=== PATIENT | female | born 1965 | race African-American/Black ===

== ENCOUNTER 2019-05-02 21:10 | Emergency (ER) | payer OTHER ==
[~2019-05-02] VITALS: Ht 170.2 cm; Wt 80.0 kg
[2019-05-02] MEDS ORDERED: LEVETIRACETAM 500MG PREMIX 100 ML IV ONE (21:45)
[2019-05-02 23:14] LABS: BASOPHILS % 0.7 % (0.0-2.0); EOSINOPHILS % 1.2 % (0.0-5.0); HEMATOCRIT. 29.5 % (36.0-48.0); HEMOGLOBIN. 9.6 g/dL (12.0-16.0); LYMPHOCYTES % 25.9 % (20.0-50.0); MEAN CORPUSCULAR HEMOGLOBIN 31.1 pg (28.0-32.0); MEAN CORPUSCULAR VOLUME 95.7 fL (81.0-99.0); MEAN PLATELET VOLUME 7.1 fl (7.4-10.4); MONOCYTES % 3.7 % (2.0-8.0); NEUTROPHILS % 68.5 % (40.0-76.0); PLATELET 264 x1000/uL (130-400); RED BLOOD CELL COUNT 3.09 mill/uL (4.2-5.4); RED CELL DISTRIBUTION WIDTH 19.3 % (11.6-14.6)
[2019-05-02 23:16] LABS: CHLORIDE 109 mEq/L (98-107)
[2019-05-03 01:20] VITALS: BP 99/64
== END 2019-05-03 01:10 | disposition home or self-care (01) ==
LOC: ER 21:10
DX: G40.909 Epilepsy, unspecified, not intractable, without status epilepticus (principal); Z85.51 Personal history of malignant neoplasm of bladder
CPT/HCPCS: 36415; 70450; 80053; 85025; 96365; 99284; J1953